=== PATIENT | male | born 1955 | race Caucasian/White ===

== ENCOUNTER 2017-06-02 05:30 | Inpatient (IN) | payer BC ==
[~2017-06-02] VITALS: Ht 180.3 cm; Wt 81.2 kg
[2017-06-02 05:31] VITALS: BP_SYST 159
[2017-06-02] MEDS ORDERED: PANTOPRAZOLE SODIUM 40 MG/VIAL (PROTONIX) ONE (05:52)
[2017-06-02] MEDS ORDERED: PANTOPRAZOLE SODIUM 40 MG in NS 50 ML IV SCH (06:00)
[2017-06-02] MEDS ORDERED: ONDANSETRON HCL 4 MG/2 ML VIAL IVP ONE (06:00)
[2017-06-02] MEDS ORDERED: NACL 0.9% 1,000 ML IV ONE (06:00)
[2017-06-02 06:11] LABS: BASOPHILS % (AUTO) 0.5 % (0.0-2.0); HEMOGLOBIN 11.5 g/dL (14.0-18.0); LYMPHOCYTES # (AUTO) 1.3 K/uL (1.0-5.5); LYMPHOCYTES % (AUTO) 18.6 % (20.5-51.5); MEAN CORPUSCULAR HEMOGLOBIN 34 pg (27-31); MEAN CORPUSCULAR HGB CONC 34 % (32-36); MEAN CORPUSCULAR VOLUME 100 fL (79.0-98.0); MONOCYTES # (AUTO) 0.4 K/uL (0.0-1.0); MONOCYTES % (AUTO) 6.5 % (1.7-9.3); NEUTROPHILS # (AUTO) 5.1 K/uL (1.8-7.7); NEUTROPHILS % (AUTO) 74.4 % (40.0-70.0); PLATELET COUNT (AUTO) 278 K/uL (130-430); RED BLOOD CELL COUNT(AUTO) 3.39 MIL/uL (4.2-6.2); RED CELL DISTRIBUTION WIDTH 12.1 % (9.0-15.0); WHITE BLOOD COUNT (AUTO) 6.8 K/uL (4.8-10.8)
[2017-06-02 06:20] LABS: CALCIUM 9.8 mg/dL (8.4-11.0); CREATININE 0.59 mg/dL (0.55-1.30)
[2017-06-02] MEDS ORDERED: FOLIC ACID 5 MG/ML VIAL IV ONE (06:20)
[2017-06-02] MEDS ORDERED: MVI 10 ML VIAL IV ONE (06:20)
[2017-06-02] MEDS ORDERED: MAGNESIUM SULFATE 1 GM/2 ML VIAL ONE (06:20)
[2017-06-02] MEDS ORDERED: THIAMINE HCL 100 MG/ML VIAL ONE (06:20)
[2017-06-02 06:24] LABS: INR 1.1 (0.80-1.20)
[2017-06-02 06:25] LABS: ALBUMIN 3.6 g/dL (3.4-4.8)
[2017-06-02] MEDS ORDERED: FOLIC ACID 1 MG, THIAMINE HCL 100 MG, MAGNESIUM SULFATE 1 GM, MVI 10 ML in NACL 0.9% 1,... IV ONE (06:30)
[2017-06-02] MEDS ORDERED: ATEN-41 PO (06:37)
[2017-06-02] MEDS ORDERED: ASPI81TA2 PO (06:37)
[2017-06-02 06:54] LABS: BILIRUBIN,URINE NEGATIVE (NEGATIVE); BLOOD, URINE NEGATIVE (NEGATIVE); CLARITY/URINE CLEAR (CLEAR); COLOR,URINE YELLOW (YELLOW); GLUCOSE,URINE NEGATIVE (NEGATIVE); KETONES,URINE 3+ (NEGATIVE); LEUKOCYTE ESTERASE ,URINE NEGATIVE (NEGATIVE); NITRITE, URINE NEGATIVE (NEGATIVE); PROTEIN URINE TRACE (NEGATIVE); UROBILINOGEN,URINE 0.2 (0.2-1.0)
[2017-06-02 06:57] LABS: BACTERIA,URINE FEW /HPF (None Seen); RBC,URINE 0-3 /HPF (0-3); WBC,URINE 0-3 /HPF (0-3)
[2017-06-02 06:58] LABS: MUCUS,URINE 1+ /LPF (None Seen)
[2017-06-02 07:06] VITALS: BP_SYST 146
[2017-06-02] MEDS ORDERED: PANTOPRAZOLE SODIUM 40 MG/VIAL (PROTONIX) IVP SCH (09:00)
[2017-06-02] MEDS ORDERED: OCTREOTIDE ACETATE 1,250 MCG in NS 243.75 ML IV SCH (09:15)
[2017-06-02] MEDS: METOPROLOL TARTRATE 25 MG TABLET PO SCH ×2 (09:49→20:36)
[2017-06-02] MEDS ORDERED: cefTRIAXone 1 GM in D5W 50 ML IV SCH (10:00)
[2017-06-02] MEDS: PANTOPRAZOLE SODIUM 40 MG in NS 50 ML IV SCH ×3 (10:10→18:51)
[2017-06-02] MEDS: D5NS 1,000 ML IV SCH ×2 (10:42→22:59)
[2017-06-03 00:54] VITALS: BP_SYST 123
[2017-06-03] MEDS: PANTOPRAZOLE SODIUM 40 MG in NS 50 ML IV SCH ×2 (01:32→05:48)
[2017-06-03 04:00] VITALS: BP_SYST 125
[2017-06-03 06:53] LABS: INR 1.1 (0.80-1.20); PROTHROMBIN TIME 10.9 SECS (9.5-12.5)
[2017-06-03] MEDS ORDERED: MEPERIDINE HCL/PF 100 MG/ML AMP ONE (07:06)
[2017-06-03] MEDS ORDERED: MIDAZOLAM HCL 5 MG/5 ML VIAL ONE (07:06)
[2017-06-03] MEDS ORDERED: DIPHENHYDRAMINE INJ 50 MG/ML VIAL ONE (07:06)
[2017-06-03 07:43] VITALS: BP_SYST 119
[2017-06-03 08:50] VITALS: BP_SYST 116
[2017-06-03] MEDS ORDERED: GASTROGRAFIN 120 ML ONE (09:55)
[2017-06-03 11:04] LABS: BASOPHILS % (AUTO) 0.8 % (0.0-2.0); EOSINOPHILS % (AUTO) 0.5 % (0.0-4.0); HEMATOCRIT 29.4 % (36-54); HEMOGLOBIN 9.6 g/dL (14.0-18.0); LYMPHOCYTES # (AUTO) 0.8 K/uL (1.0-5.5); LYMPHOCYTES % (AUTO) 18.6 % (20.5-51.5); MEAN CORPUSCULAR HEMOGLOBIN 33 pg (27-31); MEAN CORPUSCULAR HGB CONC 33 % (32-36); MEAN CORPUSCULAR VOLUME 101 fL (79.0-98.0); MONOCYTES # (AUTO) 0.3 K/uL (0.0-1.0); MONOCYTES % (AUTO) 7.4 % (1.7-9.3); NEUTROPHILS # (AUTO) 3.1 K/uL (1.8-7.7); NEUTROPHILS % (AUTO) 72.7 % (40.0-70.0); PLATELET COUNT (AUTO) 214 K/uL (130-430); RED BLOOD CELL COUNT(AUTO) 2.92 MIL/uL (4.2-6.2); RED CELL DISTRIBUTION WIDTH 11.9 % (9.0-15.0); WHITE BLOOD COUNT (AUTO) 4.2 K/uL (4.8-10.8)
[2017-06-03 12:00] VITALS: BP_SYST 118
[2017-06-03] MEDS: PANTOPRAZOLE SODIUM 40 MG/VIAL (PROTONIX) IVP SCH ×2 (12:37→22:51)
[2017-06-03] MEDS: METOPROLOL TARTRATE 25 MG TABLET PO SCH ×2 (12:41→22:57)
[2017-06-03] MEDS ORDERED: BISACODYL 5 MG TABLET.DR (DULCOLAX) PO ONE (17:00)
[2017-06-03] MEDS ORDERED: GOLYTELY / COLYTE SOLUTION 4 LITERS PO ONE (18:00)
[2017-06-03] MEDS: D5NS 1,000 ML IV SCH ×2 (18:03→22:45)
[2017-06-03 20:00] VITALS: BP_SYST 115
[2017-06-04 01:16] VITALS: BP_SYST 108
[2017-06-04 04:49] VITALS: BP_SYST 118
[2017-06-04] MEDS: D5NS 1,000 ML IV SCH ×2 (05:52→08:37)
[2017-06-04 06:31] LABS: EOSINOPHILS # (AUTO) 0.1 K/uL (0.0-0.4); EOSINOPHILS % (AUTO) 2.2 % (0.0-4.0); HEMATOCRIT 27.3 % (36-54); HEMOGLOBIN 9.2 g/dL (14.0-18.0); LYMPHOCYTES # (AUTO) 1.1 K/uL (1.0-5.5); LYMPHOCYTES % (AUTO) 29.1 % (20.5-51.5); MEAN CORPUSCULAR HEMOGLOBIN 34 pg (27-31); MEAN CORPUSCULAR HGB CONC 34 % (32-36); MEAN CORPUSCULAR VOLUME 101 fL (79.0-98.0); MONOCYTES # (AUTO) 0.3 K/uL (0.0-1.0); NEUTROPHILS # (AUTO) 2.3 K/uL (1.8-7.7); NEUTROPHILS % (AUTO) 58.7 % (40.0-70.0); PLATELET COUNT (AUTO) 188 K/uL (130-430); RED BLOOD CELL COUNT(AUTO) 2.69 MIL/uL (4.2-6.2); RED CELL DISTRIBUTION WIDTH 12.1 % (9.0-15.0); WHITE BLOOD COUNT (AUTO) 3.8 K/uL (4.8-10.8)
[2017-06-04 06:40] LABS: CALCIUM 8.3 mg/dL (8.4-11.0); CREATININE 0.55 mg/dL (0.55-1.30)
[2017-06-04 06:44] LABS: POTASSIUM 2.9 mmol/L (3.5-5.1)
[2017-06-04 08:00] VITALS: BP_SYST 122
[2017-06-04] MEDS ORDERED: POTASSIUM CHLORIDE 40 MEQ, LIDOCAINE JECT 2% PF 100 MG 50 MG in NS 250 ML IV ONE (08:00)
[2017-06-04] MEDS ORDERED: DIPHENHYDRAMINE INJ 50 MG/ML VIAL ONE (08:00)
[2017-06-04] MEDS: METOPROLOL TARTRATE 25 MG TABLET PO SCH (08:34)
[2017-06-04] MEDS: PANTOPRAZOLE SODIUM 40 MG/VIAL (PROTONIX) IVP SCH (08:36)
[2017-06-04] MEDS ORDERED: MAGNESIUM SULFATE IN WATER 100 ML IV ONE (09:45)
[2017-06-04 12:47] VITALS: BP_SYST 126
[2017-06-04] MEDS: MEPERIDINE HCL/PF 100 MG/ML AMP ONE ×3 (15:22→15:32)
[2017-06-04] MEDS: MIDAZOLAM HCL 5 MG/5 ML VIAL ONE ×4 (15:22→15:28)
[2017-06-04 16:10] VITALS: BP_SYST 101
[2017-06-04 17:36] VITALS: BP_SYST 118
== END 2017-06-04 18:30 | disposition home or self-care (01) | DRG 378 ==
LOC: SED 05:30 → STU 06:38 → SMU 06-03 10:24
PROVIDERS: ADMIT General Practice; ATTEND General Practice
PROC: 0DB68ZX Excision of Stomach, Via Natural or Artificial Opening Endoscopic, Diagnostic (ICD-10-PCS; principal; 2017-06-03 08:30)
PROC: 0DJD8ZZ Inspection of Lower Intestinal Tract, Via Natural or Artificial Opening Endoscopic (ICD-10-PCS; 2017-06-04)
DX: K92.1 Melena (principal); E87.2 Acidosis; E83.42 Hypomagnesemia; D64.9 Anemia, unspecified; F10.20 Alcohol dependence, uncomplicated; K29.70 Gastritis, unspecified, without bleeding; K29.80 Duodenitis without bleeding; K31.9 Disease of stomach and duodenum, unspecified; E87.6 Hypokalemia; I10 Essential (primary) hypertension; K57.90 Diverticulosis of intestine, part unspecified, without perforation or abscess without bleeding; K64.8 Other hemorrhoids; Z79.82 Long term (current) use of aspirin; Z79.899 Other long term (current) drug therapy
CPT/HCPCS: 36415; 43239; 71010; 74245-TC; 76700-TC; 80048; 80053; 81000-TC; 83605; 83735-TC; 84484; 85025; 85610-TC; 85730-TC; 86886; 86900; 86901; 87040-TC; 87081; 88305; 88312; 88313; 93005; 96365; 96375; 99285; C9113; G0482; J0696; J1200; J2175; J2250; J2354; J2405; J3411; J3475; J3480; J3490; J7030; J7042; J7050; J7060; Q9963